=== PATIENT | female | born 1955 | race Two or more races ===

== ENCOUNTER 2025-06-28 11:30 | Inpatient (IN) | payer MEDICARE, OTHER ==
[~2025-06-28] VITALS: Ht 165.1 cm; Wt 84.2 kg
[2025-06-28] MEDS: IV LR 1000 ML 1,000 ML BAG IV ONE (12:10)
[2025-06-28] MEDS ORDERED: ONDANSETRON HCL/PF 4 MG/2 ML VIAL ONE (12:15)
[2025-06-28] MEDS ORDERED: MORPHINE SULFATE INJ 4 MG/ML DISP.SYRIN ONE (12:16)
[2025-06-28] MEDS ORDERED: FAMOTIDINE/PF INJ 20 MG/2 ML VIAL IV ONE (12:16)
[2025-06-28] MEDS: ONDANSETRON HCL/PF 4 MG/2 ML VIAL IV ONE (12:20)
[2025-06-28] MEDS: FAMOTIDINE/PF INJ 20 MG/2 ML VIAL IV ONE (12:21)
[2025-06-28 12:25] LABS: APPEARANCE,URINE CLEAR (CLEAR); BLOOD, URINE TRACE-INTA Ery/uL (NEGATIVE); LEUKOCYTE ESTERASE ,URINE 1+ (NEGATIVE); NITRITE, URINE NEGATIVE (NEGATIVE); UGLUCOSE NEGATIVE (NEGATIVE)
[2025-06-28] MEDS: MORPHINE SULFATE INJ 2 MG/ML DISP.SYRIN IV ONE ×2 (12:25→21:29)
[2025-06-28 12:30] LABS: PLATELET COUNT (AUTO) 450 K/uL (150-450); RED BLOOD CELL COUNT(AUTO) 4.32 MIL/uL (4.0-5.2); RED CELL DISTRIBUTION WIDTH 13.8 % (11.5-15.0); WHITE BLOOD COUNT (AUTO) 18.0 K/uL (4.3-11.0)
[2025-06-28 12:32] LABS: CALCIUM, SERUM 9.2 mg/dL (8.5-10.1); CREATININE 1.0 mg/dL (0.6-1.3); SODIUM SERUM 136 mmol/L (136-145); UREA NITROGEN, BLOOD 14 mg/dL (7-18)
[2025-06-28 12:33] LABS: ADD URINE CULTURE YES; SQUAMOUS EPITHELIAL CELL,UR Few /HPF (None Seen)
[2025-06-28 12:38] LABS: ASPARTATE AMINOTRANSFERASE 38 U/L (15-37); TOTAL PROTEIN, SERUM 8.0 g/dL (6.4-8.2)
[2025-06-28] MEDS ORDERED: IOHEXOL-300 100 ML VIAL IV ONE (12:51)
[2025-06-28] MEDS ORDERED: IV NS 0.9% 250 ML IV ONE (12:51)
[2025-06-28] MEDS: PIPERACILLIN /TAZOBACTAM 3.375 G in IV D5W 50 ML IV ONE (14:10)
[2025-06-28] MEDS ORDERED: TYL2T PO (14:15)
[2025-06-28] MEDS ORDERED: LOPE2TAB25 PO (14:15)
[2025-06-28] MEDS ORDERED: Z GUARD REMEDY 4 OZ OINT TP PRN (14:30)
[2025-06-28] MEDS ORDERED: ONDANSETRON HCL/PF 4 MG/2 ML VIAL IVP PRN (14:30)
[2025-06-28] MEDS ORDERED: ZOLPIDEM TARTRATE 5 MG TABLET PO PRN (14:30)
[2025-06-28] MEDS ORDERED: MAG HYDROX/AL HYDROX/SIMETH 30 ML UDC PO PRN (14:30)
[2025-06-28] MEDS ORDERED: ACETAMINOPHEN 325 MG TABLET PO PRN (14:30)
[2025-06-28] MEDS ORDERED: MAGNESIUM HYDROXIDE 30 ML UDC PO PRN (14:30)
[2025-06-28] MEDS ORDERED: PIPERACILLIN /TAZOBACTAM 4.5 G in IV D5W 50 ML IV SCH (18:00)
[2025-06-28] MEDS: IV D5/0.45 NACL 1,000 ML IV PRN (18:17)
[2025-06-28 18:35] VITALS: BP 127/73; TEMP 98.4; O2SAT 98
[2025-06-28 20:00] VITALS: BP 143/64; TEMP 97.7; O2SAT 98
[2025-06-28] MEDS: PIPERACILLIN /TAZOBACTAM 3.375 G in IV D5W 100 ML IV SCH (21:30)
[2025-06-29 07:37] LABS: CALCIUM, SERUM 9.0 mg/dL (8.5-10.1); CREATININE 0.9 mg/dL (0.6-1.3); PHOSPHORUS 4.1 mg/dL (2.5-4.9); SODIUM SERUM 139.0 mmol/L (136-145); UREA NITROGEN, BLOOD 14.0 mg/dL (7-18)
[2025-06-29 07:44] LABS: PLATELET COUNT (AUTO) 433 K/uL (150-450); RED BLOOD CELL COUNT(AUTO) 4.18 MIL/uL (4.0-5.2); RED CELL DISTRIBUTION WIDTH 13.8 % (11.5-15.0); WHITE BLOOD COUNT (AUTO) 14.7 K/uL (4.3-11.0)
[2025-06-29 08:00] VITALS: BP 126/67; TEMP 98.2; O2SAT 98
[2025-06-29] MEDS ORDERED: IOHEXOL-300 100 ML VIAL IV ONE (10:55)
[2025-06-29] MEDS ORDERED: MORPHINE SULFATE INJ 2 MG/ML DISP.SYRIN IV PRN (11:30)
[2025-06-29] MEDS: HYDROMORPHONE 1 MG/1 ML DISP.SYRIN IV PRN (11:43)
[2025-06-29 16:00] VITALS: BP 140/69; TEMP 97.9; O2SAT 96
[2025-06-29 20:00] VITALS: BP 151/66; TEMP 97.9; O2SAT 96
[2025-06-30 08:00] VITALS: BP 134/64; TEMP 98.1; O2SAT 96
[2025-06-30] MEDS ORDERED: IOHEXOL-300 100 ML VIAL IV ONE (09:15)
[2025-06-30] MEDS ORDERED: IV NS 0.9% 250 ML IV ONE (09:15)
== END 2025-06-30 13:45 | disposition left against medical advice (07) | DRG 375 ==
LOC: ER 11:41 → MED 15:08
PROVIDERS: ADMIT Internal Medicine; ATTEND Internal Medicine
DX: C18.6 Malignant neoplasm of descending colon (principal); K56.690 Other partial intestinal obstruction; I10 Essential (primary) hypertension; D72.829 Elevated white blood cell count, unspecified; K59.00 Constipation, unspecified; R74.8 Abnormal levels of other serum enzymes
CPT/HCPCS: 36415; 71045-TC; 80048-TC; 80076-TC; 81001; 82378; 83605-TC; 83690-TC; 83735-TC; 84100-TC; 84484-TC; 85025-TC; 86301; 87040-TC; 87081-TC; 87086-TC; A4223; G0378; J1171; J1308; J2270; J2405; J2543; J3490; J7040; J7050; J7060; J7120; Q9967